=== PATIENT | male | born 1980 | race Caucasian/White ===

== ENCOUNTER 2018-04-21 11:20 | Observation (INO) ==
[2018-04-21] MEDS ORDERED: Isovue-370 500 ML INFUS..BTL IV ONE (11:58)
[2018-04-21] MEDS ORDERED: Piperacillin/Tazobactam 3.375 GM in 0.9 % Sodium Chloride Mini Bag 100 ML IVPB ONE (11:58)
[2018-04-21] MEDS ORDERED: Tdap (Boostrix) Vaccine 0.5 ML SYRINGE IM ONE (11:59)
--- NOTE | 2018-04-21 12:00 | Emergency Department Note ---
Disposition Clinical Impression: Bite by animal, IVDU (intravenous drug user) Dog bite Qualifiers: Encounter type: initial encounter Qualified Code(s): W54.0XXA - Bitten by dog, initial encounter Cellulitis Qualifiers: Site of cellulitis: extremity Site of cellulitis of extremity: lower extremity Laterality: left Qualified Code(s): L03.116 - Cellulitis of left lower limb Disposition: Admitted As Inpatient Condition: Fair Referrals: Ramon Rosado MD [Primary Care Provider] - Forms: ED Satisfaction Letter Time of Disposition: 15:31 General Adult HPI - General Chief complaint: ED Animal Bite Stated complaint: animal bite Time Seen by Provider: 04/21/18 11:32 Source: patient Mode of arrival: wheelchair Limitations: no limitations Nursing Notes Reviewed: Yes Vital Signs Reviewed: Yes - History of Present Illness HPI Narrative: 37-year-old male in no significant past medical history presenting to the emergency department chief complaint of dog bite. Patient states 2 days ago a dog bit his left lower extremity. Since then the leg has gotten severely painful, red, warm and swollen. Patient does not know when his last tetanus shot was. Dog was a neighbor's dog and was up-to-date on immunizations. Patient denies IV drug use to me but does disclose IV drug use to nursing staff. States last IV use was approximately 3 days ago. Patient denies any vomiting, abdominal pain or fever. He does state the left lower extremity feels very hot at home. Pain Scale: 7 - Related Data Home Medications Medication Instructions Recorded Confirmed No Known Home Drugs 04/21/18 04/21/18 Allergies Allergy/AdvReac Type Severity Reaction Status Date / Time No Known Allergies Allergy Verified 04/21/18 12:58 All systems ED: reviewed and negative except as stated. Constitutional: Denies: fever, chills Eyes: Reports: as per HPI ENT ED: Reports: as per HPI Cardiovascular: Denies: chest pain, palpitations, dyspnea on exertion Respiratory: Denies: cough, dyspnea, wheezes Gastrointestinal: Reports: as per HPI Genitourinary: Reports: as per HPI Musculoskeletal: Reports: as per HPI Integumentary: Reports: other Neurological: Denies: weakness, numbness, paresthesias Psychiatric: Reports: as per HPI Endocrine: Reports: as per HPI Hematological/Lymphatic: Reports: as per HPI Allergic/Immunologic: Reports: as per HPI Past Medical History - Past Medical History Attestation: Yes The following information was validated with the patient. Medical history: Reports: no medical history, kidney stones Psychiatric history: Reports: no psych history - Social History Smoking Status: Current every day smoker Smokeless Tobacco Status: No Alcohol use: Reports: occasionally Drug use: Reports: cocaine, opiates, marijuana, methamphetamine, IV Drug Use, prescription drug abuse Physical Exam - General Limitations: no limitations General appearance: alert, in no apparent distress - Head Head exam: atraumatic, normocephalic, normal inspection - Eye Eye exam: Present: normal appearance. Absent: scleral icterus, conjunctival injection - ENT ENT exam: normal exam, mucous membranes moist - Neck Neck exam: Present: normal inspection. Absent: tenderness, meningismus - Chest Chest inspection: Present: normal inspection, symmetric chest wall rise. Absent : tenderness, rash - Respiratory Respiratory exam: Present: normal lung sounds bilaterally. Absent: respiratory distress, wheezes - Cardiovascular Cardiovascular exam: Present: normal rhythm, tachycardia, normal heart sounds - Abdominal Exam Abdominal exam: Present: soft, Non-Tender. Absent: distention, guarding, rebound - Extremities Exam Extremities exam: Present: other (Bilateral lower extremity distal pulses 2+. Bilateral lower extremity neurovascularly intact. Bilateral lower extremity muscle strength 5 out of 5. Left lower extremity shows 2 close abrasion areas on the lateral aspect. Distal to the abrasions lower extremity is red, warm to touch with fluctuant area spreading down to the lateral malleolus. Pain to deep palpation. No crepitus) - Neurological Exam Neurological exam: Present: alert, oriented X3 - Psychiatric Psychiatric exam: Present: normal affect, normal mood - Skin Skin exam: Present: warm Course Course Narrative: 37-year-old male presenting 2 days after a dog bite. Patient has diffuse red, swollen and painful left lower extremity. Concern for abscess and deep fluid collection. Patient is tachycardic but otherwise vital signs stable. We will plan to obtain basic laboratory analysis including CBC and BMP. We will also perform a CT of the left lower extremity with contrast. We will provide the patient 1 dose of vancomycin and Zosyn. Disposition most likely be admission the pending results. Patient agrees with this plan. - Reevaluation(s) Reevaluation #1: Patient laboratory analysis shows elevated white count at 21.2. CT of the lower extremity shows subcutaneous fluid but no collection of hematoma or abscess. At this time will plan to admit the patient for IV antibiotics for his cellulitis. Patient is alert oriented 3 in the room stable vital signs. Patient agrees with this plan. I spoke with Dr. Henry the accepting hospitalist who agrees to accept the patient this time. Vital Signs Temperature 98.7 F 04/21/18 11:41 Pulse Rate 104 04/21/18 11:41 Respiratory Rate 20 04/21/18 11:41 Blood Pressure 143/89 04/21/18 11:41 O2 Sat by Pulse Oximetry 98 04/21/18 11:41 Temperature 98.7 F 04/21/18 11:48 Pulse Rate 96 04/21/18 14:58 Respiratory Rate 16 04/21/18 13:04 Blood Pressure 118/81 04/21/18 14:58 O2 Sat by Pulse Oximetry 100 04/21/18 14:58 Oxygen Delivery Oxygen Delivery Room Air Medical Decision Making - Lab Data Result diagrams: 04/21/18 12:18 04/21/18 12:18 Lab Results 04/21/18 04/21/18 Range/Units 12:18 12:18 WBC 21.2 H (4.3-11.1) K/mcL RBC 4.58 (4.19-5.50) M/mcL Hgb 13.9 (12.9-16.9) g/dL Hct 42.4 (37.5-50.1) % MCV 92.6 (83.0-100.0) fL MCH 30.3 (28.0-33.3) pg MCHC 32.8 (31.6-35.5) g/dL RDW 13.7 (11.5-14.5) % Plt Count 440 H (140-400) K/mcL MPV 8.0 L (9.4-12.4) fL Immature Gran % 0.5 (0-4) % Seg Neutrophils % 75.3 % Lymphocytes % 14.5 % Monocytes % 8.6 % Eosinophils % 0.8 % Basophils % 0.3 % Neutrophils # 15.9 H (1.6-8.9) K/mcL Lymphocytes # 3.1 (0.6-4.6) K/mcL Monocytes # 1.8 H (0.0-1.3) K/mcL Eosinophils # 0.2 (0.0-0.6) K/mcL Basophils # 0.1 (0.0-0.2) K/mcL Sodium 134 L (136-145) mEq/L Potassium 3.5 (3.5-5.1) mEq/L Chloride 96 L (98-107) mEq/L Carbon Dioxide 31 H (23-29) mEq/L BUN 10 (6-20) mg/dL Creatinine 0.83 (0.70-1.30) mg/dL Est GFR ( Amer) > 60 (> 60) Est GFR (Non-Af Amer) > 60 (> 60) BUN/Creatinine Ratio 12 (6-26) Glucose 98 (70-105) mg/dL Calculated Osmolality 277 L (280-300) Calcium 9.6 (8.6-10.3) mg/dL
--- NOTE | 2018-04-21 12:12 | Emergency Department Note ---
Disposition Clinical Impression: Bite by animal Dog bite Qualifiers: Encounter type: initial encounter Qualified Code(s): W54.0XXA - Bitten by dog, initial encounter Disposition: Still a Patient Referrals: Ramon Rosado MD [Primary Care Provider] - Forms: ED Satisfaction Letter General Adult HPI - General Chief complaint: ED Animal Bite Stated complaint: animal bite Time Seen by Provider: 04/21/18 11:32 Source: patient Limitations: no limitations - History of Present Illness Pain Scale: 7 Past Medical History - Past Medical History Medical history: Reports: no medical history, kidney stones Psychiatric history: Reports: no psych history - Social History Smoking Status: Current every day smoker Smokeless Tobacco Status: No Alcohol use: Reports: occasionally Drug use: Reports: cocaine, opiates, marijuana, methamphetamine, IV Drug Use, prescription drug abuse Physical Exam - General Limitations: no limitations General appearance: alert, in no apparent distress Course - Reevaluation(s) Reevaluation #1: ED attending Attestation note Patient was seen with the emergency medicine resident Carlos Denis: I have independently evaluated the patient and have had [id number] contact with the patient. I have reviewed the history and physical, evaluation and management plan in addition to the pertinent laboratory, ancillary and imaging studies along with consultation recommendations if applicable. I agree with their evaluation, management and disposition.. Briefly: 37-year-old male of unclear history of prior drug use but denied IV drug use presents 48 hours after being bitten by a neighbors dog of tarry or bruit. Patient comes in with swelling of the dorsum of the left foot chills redness pain. His last tetanus vaccination is unclear he will be boosted today. Patient had the erythema circumscribed with a permanent marker to do note the extent of the current spread of cellulitis. There is no true lymphangitic streaking but it is a fairly large area that covers the anterior tibial area distally to the dorsum of the foot. He has 2+ pulses Refill less than 2 seconds. Patient will get screening labs patient get a CT of the left lower extremity with contrast to exclude the possibility of deep tissue infection. Patient will get cultures he will be given a preliminary dose of empiric IV vancomycin and Zosyn. Based on the patient's delayed presentation and the severity of his symptoms admission is likely. Him and his mother at bedside are agreeable with this plan. Providing 30 minutes critical care service for this patient. The left lower extremity has wounds that are scabbed over. disposition pending Time: 12:10 Vital Signs Temperature 98.7 F 04/21/18 11:41 Pulse Rate 104 04/21/18 11:41 Respiratory Rate 20 04/21/18 11:41 Blood Pressure 143/89 04/21/18 11:41 O2 Sat by Pulse Oximetry 98 04/21/18 11:41 Temperature 98.7 F 04/21/18 11:48 Pulse Rate 104 04/21/18 11:48 Respiratory Rate 20 04/21/18 11:48 Blood Pressure 143/89 04/21/18 11:48 O2 Sat by Pulse Oximetry 98 04/21/18 11:48 Oxygen Delivery Oxygen Delivery Room Air
[2018-04-21] MEDS ORDERED: *HR* FentaNYL (PF) 100 MCG/2 ML VIAL IVP ONE (12:32)
[2018-04-21 12:37] LABS: Basophils # 0.1 K/mcL (0.0-0.2); Basophils % 0.3 %; Eosinophils # 0.2 K/mcL (0.0-0.6); Eosinophils % 0.8 %; Hematocrit 42.4 % (37.5-50.1); Hemoglobin 13.9 g/dL (12.9-16.9); Immature Granulocytes % 0.5 % (0-4); Lymphocytes # 3.1 K/mcL (0.6-4.6); Lymphocytes % 14.5 %; Mean Corpuscular HGB Conc 32.8 g/dL (31.6-35.5); Mean Corpuscular Hemoglobin 30.3 pg (28.0-33.3); Mean Corpuscular Volume 92.6 fL (83.0-100.0); Monocytes # 1.8 K/mcL (0.0-1.3); Monocytes % 8.6 %; Neutrophils # 15.9 K/mcL (1.6-8.9); Platelet Count 440 K/mcL (140-400); Red Blood Count 4.58 M/mcL (4.19-5.50); Red Cell Distribution Width 13.7 % (11.5-14.5); Segmented Neutrophils % 75.3 %
[2018-04-21 12:54] LABS: BUN/Creatinine Ratio 12 (6-26); Blood Urea Nitrogen 10 mg/dL (6-20); Calcium 9.6 mg/dL (8.6-10.3); Carbon Dioxide 31 mEq/L (23-29); Chloride 96 mEq/L (98-107); Glucose 98 mg/dL (70-105); Osmolality,Calculated 277 (280-300); Potassium 3.5 mEq/L (3.5-5.1); Sodium 134 mEq/L (136-145); eGFR For Non-African Americans > 60 (> 60)
[2018-04-21] MEDS ORDERED: Naloxone 0.4 MG/ML INJ IVP PRN (16:07)
--- NOTE | 2018-04-21 16:12 | Internal Med History&Physical ---
Date of Encounter: 04/21/18 Time of Encounter: 16:09 Internal Medicine - H&P: HPI Chief complaint: Left leg pain and swelling Admitted From: Emergency Dept Plans for Post Hospital Care: Home History of present illness: Mr. Finnegan is a 37 year old male with history of tobacco and polysubstance abuse, who presents with complaints of worsening pain and swelling in his left lower leg. Patient reports that he received a dog bite from a neighbor's dog, about 2 days ago on his left lower leg. He did not seek medical attention so far. He noticed worsening pain, swelling and redness in his lower leg and foot with associated subjective fevers and chills. He is able to bear partial weight on his left leg. No focal swelling, weakness, tingling in his left leg but does report some numbness. He is able to move his ankle joint and weekly stools. No nausea, vomiting, diarrhea. No chest pain or shortness of breath. Past Med Surg Social Fam HX - Past Medical History Source: patient Medical history: no medical history, kidney stones Psychiatric history: no psych history - Past Surgical History Surgical History: no surgical history - Social History Smoking Status: Current every day smoker Packs per day: 1/2 Smokeless Tobacco Status: No Alcohol use: occasionally Drug use: cocaine, opiates, marijuana, methamphetamine, IV Drug Use, prescription drug abuse Occupational status: unemployed Current living situation: Home, With Family Activity Level: Independent ambulation Recent Out of Country Travel Within the Last 8 Weeks: No Exposure or Possible Exposure to Illness During Travel: No - Family History Grandfather Hx Family Cardiac Disorders: Yes (CAD/AK) Internal Medicine - H&P: Meds No Known Home Drugs 04/21/18 [History] 3 Allergy/AdvReac Type Severity Reaction Status Date / Time No Known Allergies Allergy Verified 04/21/18 12:58 All Systems PM: A 10-system review of systems was performed and is negative for pertinent findings except as documented above in the HPI. - Constitutional Constitutional: chills, fever(s) - EENT Eyes: no change in vision, no discharge, no pain, no photophobia Ears: no ear discharge, no ear pain, no tinnitus Nose, mouth and throat: no dysphagia, no nasal discharge, no neck pain, no sore throat - Cardiovascular Cardiovascular ROS IM: no chest pain, no diaphoresis, no dyspnea, no lightheadedness, no palpitations, no syncope - Respiratory Respiratory: no cough, no dyspnea, no wheezing, no excessive phlegm production - Gastrointestinal Gastrointestinal: no abdominal pain, no diarrhea, no hematemesis, no hematochezia, no melena, no nausea, no vomiting - Musculoskeletal Musculoskeletal ROS IM: as per HPI, limited range of motion, numbness - Integumentary Integumentary IM: erythema, new lesions - Neurological Neurological ROS: no confusion, no convulsions, no focal weakness, no numbness, no tingling, no tremor(s) - Hematologic/Lymphatic Hematologic/Lymphatic: no easy bruising - Constitutional Vitals: Temp Pulse Resp BP Pulse Ox 98.7 F 96 16 118/81 100 04/21/18 11:48 04/21/18 14:58 04/21/18 13:04 04/21/18 14:58 04/21/18 14:58 General appearance: Present: cachectic, A&O X 3, answers questions appropriately Exam: . - Respiratory Respiratory exam: Present: CTAB. Absent: accessory muscle use, rales, rhonchi, wheezes - Cardiovascular Cardiovascular exam: Present: RRR, +S1, +S2, tachycardia. Absent: diastolic murmur, gallop, rubs, systolic murmur - GI/Abdominal GI/Abdominal exam: Present: normal bowel sounds, soft, no peritoneal signs. Absent: distended, tenderness - Extremities Exam Extremities exam: Present: full ROM (mildly restricted at left ankle), warm, radial pulses palpable and symmetrical. Absent: calf tenderness, cyanotic, pedal edema Additional comments: Left leg- lateral area with 2 linear scabs with surrounding warmth, erythema, tenderness and swelling distal to the wounds, extending into left foot; - Neurological Exam Neurological exam: Present: CN II-XII intact, oriented X3, no focal deficits. Absent: pronater drift, facial droop, speech deficit - Skin Skin exam: Present: dry, intact Internal Med - H&P Results - Labs CBC & Chem 7: 04/21/18 12:18 04/21/18 12:18 - Assessment and plan (1) Cellulitis Current Visit: Yes Status: Acute Assessment and plan: CT of left lower extremity showed nonspecific lower leg subcutaneous fluid, no hematoma or abscess. Follow-up blood cultures. Continue IV antibiotics-vancomycin and Zosyn. Pain control with when necessary Tylenol, Toradol and tramadol. Left leg elevation and supportive care. Qualifiers: Site of cellulitis: extremity Site of cellulitis of extremity: lower extremity Laterality: left Qualified Code(s): L03.116 - Cellulitis of left lower limb (2) Sepsis Current Visit: Yes Status: Acute Assessment and plan: Ancient presented with leukocytosis and tachycardia. Source of infection is left leg cellulitis. Check serum lactic acid level and monitor vital signs closely. Start IV fluid hydration and continue IV antibiotics. Follow-up cultures. Qualifiers: Sepsis type: sepsis due to unspecified organism Qualified Code(s): A41.9 - Sepsis, unspecified organism (3) Tobacco abuse Current Visit: Yes Status: Chronic Assessment and plan: Not motivated to quit smoking at this time. Nicotine transdermal patch as needed. (4) Substance use disorder Current Visit: Yes Status: Chronic Assessment and plan: Supportive care, monitor for opioid withdrawal. (5) Dog bite Current Visit: Yes Status: Acute Assessment and plan: IV antibiotics as above. No open wounds at this time. Received tetanus shot in the ER. Qualifiers: Encounter type: initial encounter Qualified Code(s): W54.0XXA - Bitten by dog, initial encounter - Time Spent With Patient Total time spent is greater than 50% in coordination of care (as documented) at patient's floor/unit and/or counseling patient:
[2018-04-21] MEDS: Ringers Solution, Lactated 1,000 ML IVC SCH (16:50)
[2018-04-21] MEDS: Nicotine 14 MG PATCH.TD24 TD SCH (16:54)
[2018-04-21] MEDS ORDERED: Vancomycin (wt based) 1,000 MG VIAL IVPB SCH (17:00)
[2018-04-21] MEDS: Acetaminophen 325 MG TABLET PO PRN (18:43)
[2018-04-21] MEDS: traMADol 50 MG TABLET PO PRN (20:50)
[2018-04-22] MEDS: Piperacillin/Tazobactam 3.375 GM in 0.9 % Sodium Chloride Mini Bag 100 ML IVPB SCH ×4 (00:52→23:58)
[2018-04-22] MEDS: *HR* Heparin 5,000 UNIT/ML VIAL SQ SCH ×3 (00:52→15:54)
[2018-04-22] MEDS: Ringers Solution, Lactated 1,000 ML IVC SCH (01:00)
[2018-04-22 01:36] LABS: Basophils # 0.1 K/mcL (0.0-0.2); Basophils % 0.4 %; Eosinophils # 0.3 K/mcL (0.0-0.6); Eosinophils % 1.9 %; Hematocrit 38.2 % (37.5-50.1); Hemoglobin 12.5 g/dL (12.9-16.9); Immature Granulocytes % 0.5 % (0-4); Lymphocytes # 3.5 K/mcL (0.6-4.6); Lymphocytes % 22.1 %; Mean Corpuscular HGB Conc 32.7 g/dL (31.6-35.5); Mean Corpuscular Hemoglobin 29.8 pg (28.0-33.3); Mean Platelet Volume 7.9 fL (9.4-12.4); Monocytes # 1.9 K/mcL (0.0-1.3); Neutrophils # 10.1 K/mcL (1.6-8.9); Platelet Count 389 K/mcL (140-400); Red Cell Distribution Width 13.9 % (11.5-14.5); Segmented Neutrophils % 63.1 %
[2018-04-22 01:55] LABS: BUN/Creatinine Ratio 14 (6-26); Blood Urea Nitrogen 10 mg/dL (6-20); Calcium 8.9 mg/dL (8.6-10.3); Carbon Dioxide 30 mEq/L (23-29); Chloride 101 mEq/L (98-107); Glucose 99 mg/dL (70-105); Osmolality,Calculated 281 (280-300); Potassium 4.2 mEq/L (3.5-5.1); Sodium 136 mEq/L (136-145); eGFR For Non-African Americans > 60 (> 60)
[2018-04-22] MEDS: traMADol 50 MG TABLET PO PRN ×4 (04:57→23:03)
[2018-04-22] MEDS: Acetaminophen 325 MG TABLET PO PRN ×2 (07:13→20:09)
[2018-04-22] MEDS: Nicotine 14 MG PATCH.TD24 TD SCH (08:11)
--- NOTE | 2018-04-22 14:09 | Internal Med Progress Note ---
Hospitalist Progress Note - Encounter Date of Encounter: 04/22/18 Time of Encounter: 11:30 - Subjective Interval History: Reports feeling well. No fever, chills, shortness of breath. No vomiting or diarrhea, tolerates antibiotics. Persistent left foot swelling, improved redness. - Exam Vitals: Temp Pulse Resp BP Pulse Ox 98.7 F 72 16 123/85 98 04/22/18 11:03 04/22/18 11:03 04/22/18 11:03 04/22/18 11:03 04/22/18 11:03 Exam: General: Thin-built male lying comfortably in bed in no acute distress Skin: Warm and supple Extremities: Left lateral leg with healing linear incisions from dog-bite; erythema significantly improved, persistent edema, warmth in the distal leg and foot; no restriction in ROM; Neurological: Awake, alert and oriented to person, place and time. No focal deficits. Psych: Affect appropriate. - Assessment and Plan (1) Cellulitis Current Visit: Yes Status: Acute Assessment and Plan: Secondary to dogbite; CT of left lower extremity showed nonspecific lower leg subcutaneous fluid, no hematoma or abscess. Preliminary blood cultures negative. Continue IV antibiotics-vancomycin and Zosyn. Pain control with when necessary Tylenol, Toradol and tramadol. Left leg elevation and supportive care. Anticipate discharge in am on PO antibiotics, possibly Bactrim and Augmentin; (2) Sepsis Current Visit: Yes Status: Resolved Assessment and Plan: Patient presented with leukocytosis and tachycardia, now improved. Source of infection is left leg cellulitis. Serum lactic acid level normal; continue IV antibiotics. Follow-up cultures. (3) Tobacco abuse Current Visit: Yes Status: Chronic Assessment and Plan: Not motivated to quit smoking at this time. Nicotine transdermal patch as needed. (4) Substance use disorder Current Visit: Yes Status: Chronic (5) Dog bite Current Visit: Yes Status: Acute - Time Spent with Patient Total time spent is greater than 50% in coordination of care (as documented) at patient's floor/unit and/or counseling patient: Plan of Care Discussed with: patient Internal Medicine: Result - Labs CBC & Chem 7: 04/22/18 01:10 04/22/18 01:10 Labs: Short CBC 04/22/18 Range/Units 01:10 WBC 16.0 H (4.3-11.1) K/mcL Hgb 12.5 L (12.9-16.9) g/dL Hct 38.2 (37.5-50.1) % Plt Count 389 (140-400) K/mcL Neutrophils # 10.1 H (1.6-8.9) K/mcL BMP 04/22/18 01:10 Sodium 136 Potassium 4.2 Chloride 101 Carbon Dioxide 30 H BUN 10 Creatinine 0.73 Glucose 99 Calcium 8.9 Consult Discharge Plan - Plan Referrals: Ramon Rosado MD [Primary Care Provider] - (1) Cellulitis Qualifiers: Site of cellulitis: extremity Site of cellulitis of extremity: lower extremity Laterality: left Qualified Code(s): L03.116 - Cellulitis of left lower limb (2) Sepsis Qualifiers: Sepsis type: sepsis due to unspecified organism Qualified Code(s): A41.9 - Sepsis, unspecified organism (5) Dog bite Qualifiers: Encounter type: initial encounter Qualified Code(s): W54.0XXA - Bitten by dog , initial encounter
[2018-04-22] MEDS ORDERED: Melatonin 3 MG TABLET PO PRN (21:36)
[2018-04-23] MEDS: *HR* Heparin 5,000 UNIT/ML VIAL SQ SCH (00:24)
[2018-04-23] MEDS ORDERED: clonazePAM 1 MG TABLET PO ONE (00:40)
[2018-04-23 01:12] LABS: Basophils # 0.1 K/mcL (0.0-0.2); Basophils % 0.2 %; Eosinophils # 0.2 K/mcL (0.0-0.6); Eosinophils % 0.8 %; Hemoglobin 12.8 g/dL (12.9-16.9); Immature Granulocytes % 0.6 % (0-4); Lymphocytes # 2.9 K/mcL (0.6-4.6); Lymphocytes % 12.6 %; Mean Corpuscular HGB Conc 32.8 g/dL (31.6-35.5); Mean Corpuscular Hemoglobin 30.1 pg (28.0-33.3); Mean Corpuscular Volume 91.8 fL (83.0-100.0); Mean Platelet Volume 8.2 fL (9.4-12.4); Monocytes # 2.2 K/mcL (0.0-1.3); Monocytes % 9.3 %; Neutrophils # 17.8 K/mcL (1.6-8.9); Platelet Count 391 K/mcL (140-400); Red Blood Count 4.25 M/mcL (4.19-5.50); Red Cell Distribution Width 13.9 % (11.5-14.5); Segmented Neutrophils % 76.5 %
[2018-04-23 03:25] VITALS: BP 117/74
[2018-04-23] MEDS: Nicotine 14 MG PATCH.TD24 TD SCH (07:28)
[2018-04-23] MEDS: Piperacillin/Tazobactam 3.375 GM in 0.9 % Sodium Chloride Mini Bag 100 ML IVPB SCH (07:30)
[2018-04-23] MEDS: traMADol 50 MG TABLET PO PRN (07:33)
[2018-04-23] MEDS ORDERED: Aminoglycoside Consult 1 EACH MC ONE (08:44)
--- NOTE | 2018-04-23 12:46 | Discharge Summary ---
Date of Encounter: 04/23/18 Time of Encounter: 12:00 - Discharge Diagnosis (1) Dog bite Priority: Primary Status: Acute Assessment and Plan: 37 year old male with history of tobacco and polysubstance abuse, who presents with complaints of worsening pain and swelling in his left lower leg. Patient reports that he received a dog bite from a neighbor's dog, about 2 days ago on his left lower leg. He did not seek medical attention so far. He noticed worsening pain, swelling and redness in his lower leg and foot with associated subjective fevers and chills. He was assessed with sepsis with infected dogbite and started on IV antibiotics with vanc and zosyn. By day 2, he was reportedly feeling better and nurse reports he took out his IV line and walked out of the hospital without signing any papers or waiting to be seen by a physician. Security was involved, but efforts to find him were futile. Qualifiers: Encounter type: initial encounter Qualified Code(s): W54.0XXA - Bitten by dog, initial encounter (2) Cellulitis Priority: Secondary Status: Acute Qualifiers: Site of cellulitis: extremity Site of cellulitis of extremity: lower extremity Laterality: left Qualified Code(s): L03.116 - Cellulitis of left lower limb (3) Sepsis Priority: Primary Status: Resolved Qualifiers: Sepsis type: sepsis due to unspecified organism Qualified Code(s): A41.9 - Sepsis, unspecified organism (4) Tobacco abuse Priority: Secondary Status: Chronic (5) Substance use disorder Priority: Secondary Status: Chronic Hospital course: Mr. Finnegan is a 37 year old male - Time Spent with Patient Total time spent providing and/or coordinating discharge services: - Discharge Medications Home Medications: No Known Home Drugs 04/21/18 [History] Allergies/Adverse Reactions: 3 Allergy/AdvReac Type Severity Reaction Status Date / Time No Known Allergies Allergy Verified 04/21/18 12:58 Date of admission: 04/21/18 15:42 Primary care physician: Ramon Rosado MD - Constitutional Vitals: Temp Pulse Resp BP Pulse Ox 98.9 F 67 14 117/74 97 04/23/18 03:24 04/23/18 03:24 04/23/18 03:24 04/23/18 03:24 04/23/18 03:24 General appearance: Present: cachectic, A&O X 3, answers questions appropriately Exam: General: Patient was not seen by me prior to walking out of the hospital - Patient Status Disposition: Left Against Medical Advice Condition: Fair - Discharge Instructions Follow Up With: Ramon Rosado MD [Primary Care Provider] -
== END 2018-04-23 08:45 | disposition left against medical advice (07) ==
LOC: 3NENU 11:20 → EMEROOARM 11:20 → SUATTDRO 15:42 → 3NENU 16:23
PROVIDERS: ADMIT Internal Medicine; ATTEND Student in an Organized Health Care Education/Training Program